=== PATIENT | female | born 1970 | race Caucasian/White ===

== ENCOUNTER 2023-04-15 13:13 | Emergency (ER) | payer MEDICARE, MEDICAID ==
[~2023-04-15] VITALS: Ht 177.8 cm; Wt 109.1 kg
[~2023-04-15 13:13] MED LIST: CHOL40002 PO; QUET200T30 PO; QUET300T2 PO
[2023-04-15] MEDS ORDERED: BUPR-345 PO (13:25)
[2023-04-15] MEDS ORDERED: LURA60TA PO (13:25)
[2023-04-15 13:26] VITALS: BP 137/80
[2023-04-15] MEDS ORDERED: LURASIDONE HCL 60 MG TABLET PO ONE (13:30)
== END 2023-04-15 14:10 | disposition home or self-care (01) ==
LOC: EMS 13:13
DX: F31.9 Bipolar disorder, unspecified (principal); F41.9 Anxiety disorder, unspecified; F17.210 Nicotine dependence, cigarettes, uncomplicated; Z98.890 Other specified postprocedural states; Z76.0 Encounter for issue of repeat prescription; Z88.8 Allergy status to other drugs, medicaments and biological substances
CPT/HCPCS: 99283; Q9967

== ENCOUNTER 2023-12-03 19:54 | Emergency (ER) | payer MEDICARE, MEDICAID ==
[~2023-12-03] VITALS: Ht 177.8 cm; Wt 104.5 kg
[~2023-12-03 19:54] MED LIST changes: +BUPR-345 PO; -CHOL40002 PO; +LURA60TA PO; -QUET200T30 PO; -QUET300T2 PO
[2023-12-03 20:13] VITALS: TEMP 98.5
[2023-12-03] MEDS ORDERED: AMOX1TAB16 PO ×2 (22:08→22:26)
[2023-12-03] MEDS ORDERED: CORTSUSP AS ×2 (22:10→22:28)
[2023-12-03] MEDS ORDERED: ACET-3385 PO ×2 (22:14→22:27)
[2023-12-03] MEDS ORDERED: OxyCODONE HCL/ACETAMINOPHEN 5-325 MG TABLET PO ONE (22:15)
[2023-12-03 22:39] VITALS: BP 151/90; PULSE 84; RESP 17
== END 2023-12-03 22:40 | disposition home or self-care (01) ==
LOC: EMS 20:04
DX: H60.92 Unspecified otitis externa, left ear (principal); H66.92 Otitis media, unspecified, left ear; F41.9 Anxiety disorder, unspecified; F31.9 Bipolar disorder, unspecified; F17.210 Nicotine dependence, cigarettes, uncomplicated; Z98.890 Other specified postprocedural states
CPT/HCPCS: 99283

== ENCOUNTER 2023-12-08 18:47 | Emergency (ER) | payer MEDICARE, MEDICAID ==
[~2023-12-08] VITALS: Ht 177.8 cm; Wt 104.5 kg
[~2023-12-08 18:47] MED LIST changes: +ACET-3385 PO; +AMOX1TAB16 PO; +CORTSUSP AS
[2023-12-08 18:52] VITALS: TEMP 98.6
[2023-12-08] MEDS ORDERED: LURA60TA4 PO (18:53)
[2023-12-08] MEDS ORDERED: BUPR-317 PO (18:53)
[2023-12-08] MEDS ORDERED: TraMADol HCL 50 MG TABLET PO ONE (20:00)
[2023-12-08 22:59] VITALS: BP 141/82; PULSE 77; RESP 16
== END 2023-12-08 23:00 | disposition home or self-care (01) ==
LOC: EMS 18:47
DX: H61.22 Impacted cerumen, left ear (principal); F41.9 Anxiety disorder, unspecified; F31.9 Bipolar disorder, unspecified; F17.210 Nicotine dependence, cigarettes, uncomplicated; Z98.890 Other specified postprocedural states; Z88.8 Allergy status to other drugs, medicaments and biological substances
CPT/HCPCS: 99283

== ENCOUNTER 2024-01-03 17:50 | Emergency (ER) | payer MEDICARE, MEDICAID ==
[~2024-01-03] VITALS: Ht 177.8 cm; Wt 103.0 kg
[~2024-01-03 17:50] MED LIST changes: -ACET-3385 PO; -AMOX1TAB16 PO; +BUPR-317 PO; -BUPR-345 PO; -CORTSUSP AS; -LURA60TA PO; +LURA60TA4 PO
[2024-01-03 17:56] VITALS: TEMP 98.3
[2024-01-03] MEDS ORDERED: NAPR-1025 PO (19:07)
[2024-01-03] MEDS: NAPROXEN 250 MG TABLET PO ONE (19:16)
[2024-01-03 19:21] VITALS: BP 135/66; PULSE 74; RESP 16
== END 2024-01-03 19:44 | disposition home or self-care (01) ==
LOC: EMS 18:03
DX: M54.50 Low back pain, unspecified (principal); F41.9 Anxiety disorder, unspecified; F31.9 Bipolar disorder, unspecified; F17.210 Nicotine dependence, cigarettes, uncomplicated; Z98.890 Other specified postprocedural states; Z88.8 Allergy status to other drugs, medicaments and biological substances
CPT/HCPCS: 99283

== ENCOUNTER → 2025-01-06 | Emergency (ER) | payer MEDICARE, MEDICAID ==
[~2025-01-06] VITALS: Ht 177.8 cm; Wt 115.0 kg
[~2025-01-06] MED LIST changes: -BUPR-317 PO; +BUPR-562 PO; +CEPH-558 PO; +IBUP-1492 PO; +NAPR-1196 PO
[2025-01-06 15:30] VITALS: TEMP 97.7
[2025-01-06] MEDS: IBUPROFEN 600 MG TABLET PO ONE (16:25)
[2025-01-06] MEDS: CEPHALEXIN MONOHYDRATE 500 MG CAPSULE PO ONE (16:25)
[2025-01-06] MEDS: POVIDONE-IODINE 10% 15 ML SOLUTION UD TP ONE (16:25)
[2025-01-06 16:53] VITALS: BP 115/61; PULSE 61; RESP 17; O2SAT 99
== END | disposition still patient (30) ==
LOC: EMS 15:06
DX: L02.511 Cutaneous abscess of right hand (principal); F17.210 Nicotine dependence, cigarettes, uncomplicated; F31.9 Bipolar disorder, unspecified; F41.9 Anxiety disorder, unspecified; Z98.890 Other specified postprocedural states; Z79.899 Other long term (current) drug therapy
CPT/HCPCS: 99283; 10060; A4247

== ENCOUNTER 2025-02-22 17:50 | Emergency (ER) | payer MEDICARE, MEDICAID ==
[~2025-02-22] VITALS: Ht 167.6 cm; Wt 79.5 kg
[~2025-02-22 17:50] MED LIST changes: -BUPR-562 PO; +BUPR-722 PO
[2025-02-22 17:56] VITALS: BP 137/67; PULSE 85; RESP 18; TEMP 97.7; O2SAT 99
[2025-02-22] MEDS ORDERED: CEPH-558 PO (19:54)
== END 2025-02-22 19:57 | disposition home or self-care (01) ==
LOC: EMS 17:50
DX: C44.91 Basal cell carcinoma of skin, unspecified (principal); F31.9 Bipolar disorder, unspecified; Z88.8 Allergy status to other drugs, medicaments and biological substances; Z79.899 Other long term (current) drug therapy
CPT/HCPCS: 99283; Z7502